=== PATIENT | female | born 1990 | race Caucasian/White ===

== ENCOUNTER 2023-12-03 21:43 | Emergency (ER) | payer MEDICAID ==
[~2023-12-03] VITALS: Ht 154.9 cm; Wt 81.6 kg
[2023-12-03 21:51] VITALS: BP 124/81; PULSE 101; RESP 18; TEMP 98.1; O2SAT 97
[2023-12-03 22:10] VITALS: O2SAT 98
[2023-12-03] MEDS ORDERED: DICYCLOMINE HCL LIQUID 10 MG/5 ML UDC ONE (22:21)
[2023-12-03] MEDS ORDERED: ALUMINUM HYD/MAG/SIMETHICONE 30 ML UDC ONE (22:21)
[2023-12-03 22:26] LABS: BASOPHILS % (AUTO) 0.2 % (0.0-2.0); EOSINOPHILS # (AUTO) 0.1 K/uL (0-0.4); EOSINOPHILS % (AUTO) 0.4 % (0.0-4.0); HEMATOCRIT 44.4 % (36-48); HEMOGLOBIN 14.6 g/dL (12.0-16.0); LYMPHOCYTES # (AUTO) 0.8 K/uL (2.5-16.5); LYMPHOCYTES % (AUTO) 5.3 % (20.5-51.1); MEAN CORPUSCULAR HEMOGLOBIN 29 pg (27-31); MEAN CORPUSCULAR HGB CONC 33 g/dL (33-37); MEAN CORPUSCULAR VOLUME 88.8 fL (80-94); MONOCYTES # (AUTO) 0.9 K/uL (0.8-1.0); MONOCYTES % (AUTO) 5.9 % (1.7-9.3); NEUTROPHILS # (AUTO) 13.6 K/uL (1.8-7.7); NEUTROPHILS % (AUTO) 88.2 % (42.2-75.2); PLATELET COUNT (AUTO) 277 K/uL (140-450); RED CELL DISTRIBUTION WIDTH 13.6 % (11.6-13.7); WHITE BLOOD COUNT (AUTO) 15.5 K/uL (4.8-10.8)
[2023-12-03 22:28] LABS: APPEARANCE,URINE CLEAR (CLEAR); BILIRUBIN,URINE NEGATIVE (NEGATIVE); BLOOD, URINE TRACE-I (NEGATIVE); COLOR,URINE YELLOW (YELLOW); LEUKOCYTE ESTERASE ,URINE NEGATIVE (NEGATIVE); NITRITE, URINE NEGATIVE (NEGATIVE); PROTEIN,URINE NEGATIVE (NEGATIVE); UGLUCOSE NEGATIVE (NEGATIVE); UROBILINOGEN,URINE 0.2 EU/dL (0.2 - 1)
[2023-12-03] MEDS: ONDANSETRON 4 MG ODT PO ONE (22:28)
[2023-12-03] MEDS: DICYCLOMINE HCL LIQUID 20 MG, ALUMINUM HYD/MAG/SIMETHICONE 30 ML, LIDOCAINE VISCOUS 2% ... PO ONE (22:28)
[2023-12-03] MEDS: KETOROLAC 30 MG/ML VIAL IM ONE (22:29)
[2023-12-03 22:31] LABS: BACTERIA,URINE 10-30 (MOD) /HPF (None Seen); MUCUS,URINE None Seen /LPF (None Seen); RBC,URINE 0-5 /HPF (0-5); SQUAMOUS EPITHELIAL CELL,UR 0-3 (FEW) /LPF (0-3 (FEW)); WBC,URINE 0-5 /HPF (0-5)
[2023-12-03 22:52] LABS: ALBUMIN 3.7 g/dL (3.4-5.0); CALCIUM 8.4 mg/dL (8.5-10.1); CREATININE 0.9 mg/dL (0.6-1.3); THYROID STIMULATING HORMONE 1.44 uIU/mL (0.34-3.74); TOTAL PROTEIN, SERUM 7.7 g/dL (6.4-8.2)
[2023-12-04] MEDS: NACL 0.9% 1,000 ML IV ONE (00:58)
[2023-12-04 01:00] VITALS: BP 103/39; PULSE 82; RESP 18; TEMP 98.1; O2SAT 99
[2023-12-04] MEDS ORDERED: ACET500T99 PO (01:45)
[2023-12-04] MEDS ORDERED: AMOX1TAB8 PO (01:45)
[2023-12-04] MEDS ORDERED: ONDA-188 PO (01:45)
[2023-12-04] MEDS ORDERED: MAG355OR2 PO (01:45)
== END 2023-12-04 02:05 | disposition home or self-care (01) ==
LOC: MED 21:43
DX: K52.9 Noninfective gastroenteritis and colitis, unspecified (principal); D72.829 Elevated white blood cell count, unspecified; R82.71 Bacteriuria; Z90.49 Acquired absence of other specified parts of digestive tract; Z79.899 Other long term (current) drug therapy
CPT/HCPCS: 36415; 74177; 80053; 81001; 81025; 83690; 84443; 85025; 87086; 96360; 96372; 99285; J1885; J7030; Q0162; Q9967